=== PATIENT | female | born 1950 | race Caucasian/White ===

== ENCOUNTER 2021-06-04 16:51 | Emergency (ER) | payer MEDICARE, OTHER ==
[2021-06-04 17:45] LABS: BASOPHIL 0.3 % (0-2); HCT 40.6 % (37.0-47.0); HGB 13.6 g/dl (12.5-16.0); LYMPHOCYTE 33.5 % (15-48); MCH 29.2 pg (25.0-31.0); MCHC 33.5 g/dL (32.0-36.0); MCV 87.3 fL (78.0-100.0); MONOCYTE 6.8 % (0-12); NEUTROPHIL 57.2 % (41-80); NRBC 0; PLT 269 K/uL (150-400); RBC 4.65 M/uL (4.20-5.40); RDW 13.2 % (11.5-14.0); WBC 9.7 K/uL (4.0-10.5)
[2021-06-04 18:01] LABS: BUN/CREAT RATIO (CALC) 25.6 RATIO; CREATININE 0.9 mg/dL (0.51-0.95); POTASSIUM 3.8 mmol/L (3.5-5.1)
[2021-06-04] MEDS ORDERED: ZOVIRAX800 MG PO (18:22)
[2021-06-04] MEDS ORDERED: PREDNISONE 20MG20 MG PO (18:22)
== END 2021-06-04 19:04 | disposition home or self-care (01) ==
LOC: FER 16:51
PROVIDERS: Emergency Medicine
DX: G51.0 Bell's palsy (principal); I10 Essential (primary) hypertension
CPT/HCPCS: 36415; 70450; 80048; 85025; J7512

== ENCOUNTER 2021-10-11 08:00 | Day surgery (SDC) | payer MEDICARE, OTHER ==
[~2021-10-11] VITALS: Ht 158 cm; Wt 86.0 kg
[~2021-10-11 08:00] MED LIST: ASPIRIN EC81 MG PO; ATORVASTATIN CA40 MG PO; BIOTIN1000 MCG PO; CITRACAL + BON1 EACH PO; ESTER-C 500 MG1 EACH PO; LOSARTAN POTASS50 MG PO; MELOXICAM15 MG PO; PANTOPRAZOLE SO40 MG PO; PREDNISONE 20MG20 MG PO; PRILOSEC20 MG PO; SERTRALINE HCL100 MG PO; SUPER B MAXI C0.4 MG PO; VITAMIN D3125 MCG PO; VITAMIN E400 UNI6 PO; ZOVIRAX800 MG PO; ZYRTEC10 M3 PO
--- NOTE | 2021-10-11 13:49 | NUR ---
PT HAD A RTKR THIS DATE. PT REQUESTS [facility]. FAXED INFORMATION TO ROBERT WITH [facility]. FAXED INFO TO [facility] FOR [facility].
[2021-10-12 06:25] LABS: BASOPHIL 0 % (0-2); EOSINOPHIL 0 % (0-7); HCT 28.6 % (37.0-47.0); HGB 9.7 g/dl (12.5-16.0); MCH 29.3 pg (25.0-31.0); MCHC 33.9 g/dL (32.0-36.0); MCV 86.4 fL (78.0-100.0); MPV 10.6 fL (6.0-9.5); NEUTROPHIL 83.5 % (41-80); NRBC 0; PLT 193 K/uL (150-400); RBC 3.31 M/uL (4.20-5.40); RDW 13.6 % (11.5-14.0); WBC 14.1 K/uL (4.0-10.5)
[2021-10-12 06:38] LABS: BUN/CREAT RATIO (CALC) 13.7 RATIO; CREATININE 1.02 mg/dL (0.51-0.95); POTASSIUM 4.4 mmol/L (3.5-5.1)
[2021-10-12] MEDS ORDERED: FEOSOL325 MG PO (09:03)
== END 2021-10-12 10:45 | disposition home or self-care (01) ==
LOC: FAS 08:00 → FMS 11:05 → FAS 10-12 10:45
PROVIDERS: Orthopaedic Surgery
DX: M17.11 Unilateral primary osteoarthritis, right knee (principal); I10 Essential (primary) hypertension; E78.5 Hyperlipidemia, unspecified; K21.9 Gastro-esophageal reflux disease without esophagitis; Z79.1 Long term (current) use of non-steroidal anti-inflammatories (NSAID); Z79.82 Long term (current) use of aspirin; Z79.899 Other long term (current) drug therapy; Z91.040 Latex allergy status
CPT/HCPCS: 36415; 73560; 80048; 85025; 86850; 86900; 86901; 94010; 94760; 97162; 97165; 97530-GP; 97535; C1713; C1776; J0171; J0697; J1100; J1170; J1885; J2250; J2270; J2405; J2704; J2795; J3010; J7120